=== PATIENT | female | born 1975 | race Caucasian/White ===

== ENCOUNTER 2016-09-18 06:37 | Emergency (ER) | payer OTHER ==
--- NOTE | 2016-09-18 07:17 | XRay Report ---
ROUTINE CHEST, TWO VIEWS: HISTORY: chest pain. The trachea, heart, mediastinal contour, lung hidalgo and bony thorax are unremarkable. Mild dextrocurvature of the lower thoracic spine is noted. IMPRESSION: Unremarkable chest x-ray.
[2016-09-18] MEDS ORDERED: NORCO 10/325 PO ONE (07:37)
[2016-09-18] MEDS ORDERED: FLEXERIL PO ONE (07:37)
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
[2016-09-18 09:20] VITALS: BP 134/87
== END 2016-09-18 09:27 | disposition home or self-care (01) ==
LOC: ED 06:37
DX: S16.1XXA Strain of muscle, fascia and tendon at neck level, initial encounter (principal); S80.12XA Contusion of left lower leg, initial encounter; I10 Essential (primary) hypertension; V89.2XXA Person injured in unspecified motor-vehicle accident, traffic, initial encounter; Y92.488 Other paved roadways as the place of occurrence of the external cause; Y93.89 Activity, other specified; Y99.8 Other external cause status
CPT/HCPCS: 71020

== ENCOUNTER 2020-07-06 10:50 | Outpatient (CLI) | payer BC ==
[2020-07-11 05:51] LABS: Vitamin D, 25-OH, D2 <4 ng/mL
== END 2020-07-06 10:51 | disposition home or self-care (01) ==
LOC: LAB 10:50
PROVIDERS: ATTEND Internal Medicine
DX: Z00.00 Encounter for general adult medical examination without abnormal findings (principal); Z13.1 Encounter for screening for diabetes mellitus; Z13.220 Encounter for screening for lipoid disorders; Z13.29 Encounter for screening for other suspected endocrine disorder; D64.9 Anemia, unspecified; E55.9 Vitamin D deficiency, unspecified; D51.9 Vitamin B12 deficiency anemia, unspecified
CPT/HCPCS: 36415; 82306; 82607; 82728; 83540

== ENCOUNTER 2020-11-20 11:23 | Outpatient (CLI) | payer BC ==
[2020-11-20 11:55] LABS: Basophils # (Auto) 0.1 K/mm3 (0.0-0.1); Basophils % (Auto) 1.4 % (0.0-1.8); Eosinophils # (Auto) 0.1 K/mm3 (0.0-0.4); Eosinophils % (Auto) 2.2 % (0.0-4.3); Lymphocytes # (Auto) 1.7 K/mm3 (1.2-5.4); Lymphocytes % (Auto) 30.9 % (13.4-35.0); Mean Corpuscular HGB Conc 27 % (30-34); Monocytes # (Auto) 0.5 K/mm3 (0.0-0.8); Monocytes % (Auto) 9.1 % (0.0-7.3); Platelet Count 272 K/mm3 (140-440); Red Blood Count 5.01 M/mm3 (3.65-5.03)
[2020-11-20 12:26] LABS: Alanine Aminotransferase 18 units/L (7-56); Albumin 3.9 g/dL (3.9-5); Blood Urea Nitrogen 8 mg/dL (7-17); Calcium 8.9 mg/dL (8.4-10.2); Chol/HDL Ratio 2.91 %; HDL Cholesterol 45 mg/dL (40-59); Hemolysis Index 1; LDL Cholesterol,Direct 81 mg/dL (50-130)
[2020-11-20 13:03] LABS: BUN/Creatinine Ratio 13
[2020-11-20 14:10] LABS: Hematocrit 25.8 % (30.3-42.9); Hemoglobin 6.9 gm/dl (10.1-14.3); Mean Corpuscular Volume 52 fl (79-97); Red Cell Distribution Width 22.7 % (13.2-15.2)
== END 2020-11-20 11:24 | disposition home or self-care (01) ==
LOC: LAB 11:23
PROVIDERS: ATTEND Internal Medicine
DX: Z13.220 Encounter for screening for lipoid disorders (principal); Z13.29 Encounter for screening for other suspected endocrine disorder; Z00.00 Encounter for general adult medical examination without abnormal findings; Z13.1 Encounter for screening for diabetes mellitus; I10 Essential (primary) hypertension
CPT/HCPCS: 36415; 80053; 80061; 83036; 84443; 85025

== ENCOUNTER 2021-05-25 10:54 | Outpatient (CLI) | payer BC ==
[2021-05-25 11:37] LABS: % Iron Saturation 3.02 %
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
[2021-05-25 13:01] LABS: Basophils # (Auto) 0.1 K/mm3 (0.0-0.1); Basophils % (Auto) 0.9 % (0.0-1.8); Eosinophils # (Auto) 0.2 K/mm3 (0.0-0.4); Eosinophils % (Auto) 2.6 % (0.0-4.3); Lymphocytes # (Auto) 1.9 K/mm3 (1.2-5.4); Lymphocytes % (Auto) 28.6 % (13.4-35.0); Mean Corpuscular HGB Conc 29 % (30-34); Monocytes # (Auto) 0.5 K/mm3 (0.0-0.8); Platelet Count 306 K/mm3 (140-440); Red Blood Count 5.07 M/mm3 (3.65-5.03)
[2021-05-25 14:05] LABS: Hematocrit 28.6 % (30.3-42.9); Hemoglobin 8.2 gm/dl (10.1-14.3); Mean Corpuscular Volume 57 fl (79-97)
[2021-05-25 14:06] LABS: Red Cell Distribution Width 22.5 % (13.2-15.2)
== END 2021-05-25 10:55 | disposition home or self-care (01) ==
LOC: LAB 10:54
PROVIDERS: ATTEND Internal Medicine
DX: R22.1 Localized swelling, mass and lump, neck (principal); D50.9 Iron deficiency anemia, unspecified; R53.83 Other fatigue
CPT/HCPCS: 36415; 71046; 82728; 83550; 85025